=== PATIENT | male | born 1955 | race Caucasian/White ===

== ENCOUNTER 2016-04-24 08:54 | Observation (INO) | payer BC ==
--- NOTE | 2016-04-24 09:30 | RAD ---
HISTORY: Altered mental status COMPARISONS: None TECHNIQUE: Multiple contiguous axial CT scans were obtained of the head without intravenous contrast. FINDINGS: HEMORRHAGE/INFARCT: There is no hemorrhage or acute infarct. MASSES/SHIFT: There is no mass or shift. EXTRA-AXIAL SPACES: There are no extra-axial fluid collections. SULCI AND VENTRICLES: The sulci and ventricles are normal in size and position for the patient's stated age. CEREBRUM: There are no focal parenchymal abnormalities. BRAINSTEM: There are no focal parenchymal abnormalities. CEREBELLUM: There are no focal parenchymal abnormalities. VESSELS: The vessels are grossly normal. PARANASAL SINUSES: The paranasal sinuses are clear. ORBITS: The orbits are unremarkable. BONES AND SOFT TISSUE: No bone or soft tissue abnormalities are noted. OTHER: None IMPRESSION: NO ACUTE INTRACRANIAL PATHOLOGY.
[2016-04-24 09:43] LABS: Hematocrit 46 % (42-52); Hemoglobin 15.1 g/dl (14.0-18.0); Mean Corpuscular HGB Conc 33 g/dl (31-36); Mean Corpuscular Hemoglobin 30 pg (27-31); Mean Corpuscular Volume 90 fL (80-94); Mean Platelet Volume 8 um3 (7.4-10.4); Red Cell Distribution Width 13 % (10.5-15); White Blood Count 8.3 10^3/ul (3.5-10.8)
--- NOTE | 2016-04-24 09:45 | RAD ---
Indication: Chest pain. Single frontal view of the chest performed at 0925 hours was reviewed. Prior study is not available for review. No mediastinal shift is noted. Heart is of normal size and configuration. Lung shaw appear clear. IMPRESSION: NO ACTIVE CARDIOPULMONARY DISEASE IS NOTED.
[2016-04-24 10:00] LABS: Albumin 4.1 g/dL (3.2-5.2); EGFR African American 80.8 (>60); EGFR Non-African American 62.8 (>60); Globulin 2.9 g/dL (2-4); Potassium 3.7 mmol/L (3.5-5.0); Total Bilirubin 0.6 mg/dL (0.2-1.0)
[2016-04-24 10:03] LABS: Troponin I 0.02 ng/mL (<0.04)
[2016-04-24] MEDS ORDERED: NS 0.9% 1000 ML* 1,000 ML IV ONE ×2 (10:37→12:33)
[2016-04-24 10:56] LABS: TSH (Thyroid Stimulating Horm) 2.16 mcIU/mL (0.34-5.60)
--- NOTE | 2016-04-24 11:00 | RAD ---
Indication: Right leg pain and edema. Duplex Doppler sonography of the deep venous system of both lower extremities was performed. The left common femoral veins, proximal saphenous veins, proximal deep femoral veins, femoral veins, popliteal veins, posterior tibial veins and peroneal veins appear patent and compressible. The right common femoral vein is noncompressible with no evidence of flow. The right proximal greater saphenous vein is patent. The right proximal deep femoral vein, femoral vein and popliteal vein demonstrates echogenic material and is noncompressible with no flow. Posterior tibial veins and peroneal veins on the right are limited. IMPRESSION: Occlusive deep venous thrombosis extending from the right common femoral vein and right popliteal vein with limited evaluation of the right posterior tibial veins and peroneal veins.
--- NOTE | 2016-04-24 13:51 | CONSULT ---
Consult Consult: 60 yo RHM, HTN, HL, remote DVT, anti plt lauren, presenting with right hand incoordination he noted today, eg when using the soap dish, repeatedly dropping his (heavy) keys (on a new lucas ring). He tried to compensate with his left hand. He had no focal leg weakness but did feel unsteady, without falls or being pulled in any specific direction. He had no bulbar or visual issues; a family member at one point this am apparently did see some facial asymmetry on the right. He has no sensory symptoms. He has noted occasional word substitutions or errors of words he knows. He has had bilateral but mostly right calf swelling and discomfort for the past 2 weeks. He had a DVT in the right leg 5 years ago; there may have been a plane flight not long prior; he is unaware of any personal or FH of thrombosis; he recalls anticoagulant use for a matter of months until clot recanalization. He has been treated with several courses of inhaled and/or oral steroids for asthma flare ups recently. He has been on low dose primidone from his PMD for suspected essential tremor; he notes it when holding objects. 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 Cranial Nerves: II, III, IV, V, , VII, VIII, IX, X, XI and XII intact. Funduscopy reveals sharp discs. Motor: normal bulk and tone. Power testing is 5/5. There is no pronator drift or miguel a tremor. Sensory: vibration and touch are intact. Reflexes: 2 all extremities. Plantar responses are equivocal to flexor. Coordination: finger to nose is symmetric and intact, rapid alternating movements symmetric Gait: casual gait is normal. Romberg was negative. Serologies: - Coags, LFTs, TSH, BNP, cpk/trop are all normal or neg; bun/cr 25/1.2, plts 126K - Priors: crp neg 2012 Imaging: - Head CT reviewed and negative - Leg dopplers w/ right femoral/popliteal DVT (vs neg 2012) - Cxr neg; 10/11 CT abd and pelvis had left UVJ stone w/ hydro Impression: 60 yo RHM, several vascular risk factors, remote (and now recurrent) RLE DVT ( no history of hypercoag state but unclear if provoked), p/w right hand incoordination and word substitution errors, as well as ? facial asymmetry noted earlier by family. His exam is non localizing save rare paraphasic errors ; CT is non localizing. His symptom onset is not entirely clear, and he is not a thrombolytic candidate. He may be having a TIA or small left hemisphere stroke ; if found to have an acute donor recruitment manager vascular event, we will need to eval for a PFO given the recurrent DVT finding. Plan: 1. I defer to the medicine and ED services whether he requires a hypercoag eval. 2. start with a non contrasted brain mri if positive for stroke, he will then need a TTE with bubble study, and a CTA or MRA head and neck (hydrate) 3. would give ASA for now; clarify statin treatment; get FLP 4. treatment of DVT per primary team 5. will follow up on testing
[2016-04-24] MEDS ORDERED: Enoxaparin(*) 100 MG/ML SYR SUBCUT ONE (14:07)
[2016-04-24 14:51] LABS: Benzodiazepine Urine Screen None Detected (None Detect)
[2016-04-24] MEDS ORDERED: Aspirin TAB* 325 MG PO ONE (15:00)
[2016-04-24] MEDS ORDERED: Acetaminophen TAB* 325 MG PO PRN (15:05)
[2016-04-24] MEDS ORDERED: Ondansetron INJ* 2 MG/ML VIAL IV PRN (15:05)
[2016-04-24] MEDS ORDERED: Albuterol HFA INHALER* 8 gm MDI INH PRN (15:08)
--- NOTE | 2016-04-24 17:18 | HP ---
ADDENDUM NOW INCLUDED ON THIS REPORT ADMISSION HISTORY AND PHYSICAL: DATE OF ADMISSION: 04/24/16 PRIMARY CARE PROVIDER: Dr. Armani Wall. ADMITTING PROVIDER: SYED Rivero SUPERVISING PHYSICIAN: Dr. Cullen Taylor.* (DICTATED BY SYED THOMAS) CHIEF COMPLAINT: Discoordination with the right hand, jumbled speech, and facial droop. HISTORY OF PRESENT ILLNESS: This is a 60-year-old gentleman with a history of hypertension, hyperlipidemia, asthma, and mild chronic kidney disease, who presented to the emergency department with complaints of some difficulty with fine motor in his right hand. He was dropping objects frequently today as well as some garbled speech and a questionable right facial droop. Those symptoms have since resolved since being in the emergency department. He also provided a history of bilateral lower extremity pain and edema. The patient has been installing insulation his attic recently and has been climbing up and down the stairs quite frequently, so he blamed his pain and swelling in his legs on this and did not think much of it. He does have a history of prior DVT about 5 years ago. It sounds like it was likely spontaneous and he believes that he was anticoagulated for about 1 year. He has no known family history of clotting disorders. The patient states that he has seen by his asthma specialist over the last several weeks and treated for an asthma exacerbation and is currently completing a prednisone taper. He believes that he is about half way through a 10-day taper. The patient does believe that the steroids have been helping. His symptoms were increased shortness of breath and wheeze associated with this. PAST MEDICAL HISTORY: 1. Hypertension. 2. Hyperlipidemia. 3. History of DVT in the right leg approximately 5 years ago, anticoagulated for approximately 1 year, and sounds like this is likely spontaneous. 4. Asthma. 5. Essential tremor. 6. Historic seizure disorder but apparently has been without seizures in almost 20 years. PAST SURGICAL HISTORY: 1. The patient had likely a fusion procedure at L5-S1. 2. Ureteral stent placement and possible lithotripsy for a prior kidney stone. HOME MEDICATIONS: 1. Albuterol 2 puffs inhaled q.4 hours p.r.n. shortness of breath. 2. Ibuprofen 800 mg p.o. q.8 hours as needed for pain. 3. Lisinopril 20 mg p.o. daily. 4. Lovastatin 40 mg p.o. at bedtime. 5. Dulera 2 puffs inhaled twice daily. 6. Primidone 100 mg p.o. at bedtime. 7. Prednisone taper unknown dose at this time. FAMILY HISTORY: Negative for clotting disorder. SOCIAL HISTORY: The patient lives at home with his . Denies any smoking history. 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 He has 2 adult children. Consumes alcohol on a social basis. REVIEW OF SYSTEMS: As noted above in HPI. Otherwise, negative specifically concerning chest pain. PHYSICAL EXAMINATION GENERAL: This is a very pleasant middle-aged gentleman, in no acute distress, accompanied by his . VITAL SIGNS: Initially, temperature 99.2 degrees Fahrenheit, pulse 61 beats per minute, respiratory rate 17 per minute, oxygen saturation 97% on room air, blood pressure 152/86 mmHg. HEENT: Head is normocephalic, atraumatic with moist mucous membranes. NECK: Supple and free of lymphadenopathy. RESPIRATORY: Lungs are clear to auscultation without wheezes, crackles, or rhonchi. CARDIOVASCULAR: Heart has a regular rate and rhythm without murmurs, rubs, or gallops. ABDOMEN: Soft and nontender to palpation. EXTREMITIES: The patient does have bilateral edema, right greater than left, and some tenderness to palpation to the right calf. NEURO: Cranial nerves II through XII are intact. Gait is unremarkable. No neurologic deficits appreciated. Strength is 5/5 in all extremities. PSYCH: The patient is alert and appropriately oriented. SKIN: Limited exam shows no concerning rashes or lesions. DIAGNOSTIC STUDIES/LAB DATA: CBC shows white blood cell count of 8300, hemoglobin 15.1 g/dL, and platelet count of 126,000. INR of 0.94, PTT of 25. Comprehensive metabolic panel shows sodium of 135 mmol/L, potassium 3.7 mmol/L, BUN of 25, creatinine 1.19, estimated GFR of 62. Lactic acid normal at 1.9. Transaminases and total bilirubin within normal limits. BNP normal at 76. TSH 2.16. Imaging: Ultrasound of the lower extremities bilaterally shows an occlusive DVT extending from the right common femoral vein and right popliteal vein. No clot appreciated on the left. Chest x-ray shows no acute disease. CT of the brain shows no acute disease. ASSESSMENT AND PLAN: This is a 60-year-old gentleman with a history of prior deep venous thrombosis, hypertension, hyperlipidemia, asthma, and stage 2 chronic kidney disease, who presents with what sounds to be a transient ischemic attack and right lower extremity deep venous thrombosis. 1. Transient ischemic attack/cerebrovascular accident - the patient was evaluated by Neurology in the emergency department. MRI is pending at this time to evaluate for acute infarct as this will certainly change his management for his deep venous thrombosis. We will otherwise initiate aspirin therapy. He is already on a statin. We will check a fasting lipid panel in the morning. Admit with continuous telemetry. Obtain ultrasound of both carotid arteries as well as an echocardiogram. Based on current history and resolution of symptoms in the emergency department, this likely seems to be a transient ischemic attack. 2. Right-sided deep venous thrombosis - waiting on MRI of the brain to help determine appropriate anticoagulation for the deep venous thrombosis. Depending on the timing of this, could potentially empirically start a heparin drip, but would like to ensure that he does not have an acute ischemic area that might become hemorrhagic if anticoagulation is initiated. Otherwise, if MRI is negative, can start him on Xarelto and plan to discharge him on that. It sounds like this deep venous thrombosis is also spontaneous. He is unable to come up with any inciting factors that may have contributed to this clot formation. We would recommend a minimum of 6 months of anticoagulation and then Hematology consult for hypercoagulability workup. 3. Asthma exacerbation - I do not appreciate any wheeze or hypoxia on exam. Question whether his treatments for asthma exacerbation are actually due to a pulmonary embolism. Considered a CTA to evaluate for such, but this would not change his treatment plan as he requires anticoagulation regardless for his deep venous thrombosis and he is hemodynamically stable, so his treatments would not change in the presence of a pulmonary embolism. 4. Hypertension - continue home antihypertensives. 5. Hyperlipidemia - continue home statin therapy. 6. Stage 2 chronic kidney disease based on review of prior labs and today - avoid nephrotoxic agents; specifically, it appears that the patient has been taking NSAIDs at home, and repeat basic metabolic panel in the morning. 7. Code status - the patient is full code. 8. Healthcare proxy is his . 9. DVT prophylaxis - this will be determined based on his MRI results, but he will need to be anticoagulated for his deep venous thrombosis. DISPOSITION: The patient is being admitted to observation status for TIA and DVT. Anticipate that he will likely be appropriate for discharge tomorrow morning with pending workup at this time. SYED RIVERO ADDENDUM: MRI of the brain was completed, which is read as a tiny ischemic focus in the left parietal region near the vertex. No other significant findings appreciated. I discussed this with neurologist, Dr. Deluca who felt that it was appropriate to initiate anticoagulation for his DVT. I ordered a heparin drip to start this evening. If the patient remains neurologically stable overnight, then he can still likely be discharged tomorrow with Xarelto or similar medication. SYED RIVERO CC: Dr. Armani Wall* [id number]/CPS #: [id number] [place]-[id number]/CPS #: [id number] [place]
--- NOTE | 2016-04-24 17:56 | RAD ---
INDICATION: Left CVA COMPARISON: MRI brain same date TECHNIQUE: Transverse and longitudinal scans of the carotid and vertebral arteries were performed with epperson scale, color Doppler, and spectral Doppler imaging. Stenosis criteria is based on flow velocities that correlate with visual internal carotid artery diameter (NASCET criteria) FINDINGS: Right carotid: There is mild calcific plaque involving the bifurcation. There is no spectral broadening. The peak systolic velocity of the internal carotid artery is 81 cm/s and the peak diastolic velocity 21 cm/s. The ICA/CCA ratio is calculated at 1.2. This corresponds to a less than 50% diameter stenosis. The actual degree of stenosis is closer to 0. Left carotid: There is mild calcific plaque involving the bifurcation. There is no spectral broadening. The peak systolic velocity of the internal carotid artery is 71 cm/s and the peak diastolic velocity 27 cm/s. The ICA/CCA ratio is calculated at 1.0. This corresponds to a less than 50% diameter stenosis. The actual degree of stenosis is closer to 0. Right vertebral: Right vertebral waveforms are normal and the flow is antegrade. Left vertebral: Left vertebral waveforms are normal and the flow is antegrade. IMPRESSION: NO EVIDENCE OF A HEMODYNAMICALLY SIGNIFICANT STENOSIS. CPT II Codes: 3100F PQRS
--- NOTE | 2016-04-24 20:29 | RAD ---
INDICATION: Question CVA COMPARISON: CT brain April 24, 2016 TECHNIQUE: sagittal T1 FLAIR, axial diffusion, axial T1 FLAIR, axial T2, axial T2 FLAIR, and SWI images were acquired. FINDINGS: Craniocervical junction: The craniocervical junction appears normal. Ventricles/sulci: The ventricles and cisterns are normal in size and configuration for age. Brain parenchyma: There is a punctate ischemic focus in the cortex of the left parietal lobe at the level the body of the lateral ventricles measuring 7 mm. There are no other focal parenchymal abnormalities other than scant T2-weighted hyperintensities in the periventricular white matter consistent with mild chronic microvascular ischemic change. There is no evidence of intracranial mass or mass effect. Intracranial hemorrhage: No acute intracranial hemorrhage. Extra-axial spaces: There are no extra-axial fluid collections or masses. Orbits: There are no MR abnormalities of the orbital structures. Paranasal sinuses/mastoid: The paranasal sinuses are clear. The mastoid air cells are well aerated.. Vascular: No abnormalities are seen. Other: None IMPRESSION: TINY ISCHEMIC FOCUS LEFT PARIETAL REGION NEAR THE VERTEX. NO ADDITIONAL SIGNIFICANT FINDINGS.
[2016-04-24] MEDS: Mometasone/Formoter 200/5 MDI INH SCH (20:38)
[2016-04-24] MEDS ORDERED: Heparin DRIP 25,000 UNITS(*) 25,000 UNITS/500 ML BAG IVPB SCH (21:00)
[2016-04-24] MEDS ORDERED: Heparin VIAL(*) 5000 UNITS/ML VIAL (FIVE THOUSAND) IV SCH (21:00)
[2016-04-24] MEDS ORDERED: Atorvastatin* 10 MG TAB PO SCH (21:00)
[2016-04-24] MEDS ORDERED: Fluticasone-Salmeterol 500-50* DISKUS INH SCH (21:00)
--- NOTE | 2016-04-24 21:34 | HP ---
HISTORY AND PHYSICAL:* ADDENDUM: MRI of the brain was completed, which is read as a tiny ischemic focus in the left parietal region near the vertex. No other significant findings appreciated. I discussed this with neurologist, Dr. Deluca who felt that it was appropriate to initiate anticoagulation for his DVT. I ordered a heparin drip to start this evening. If the patient remains neurologically stable overnight, then he can still likely be discharged tomorrow with Xarelto or similar medication. SYED RIVERO [id number]/CPS #: [id number] [place]
[2016-04-24] MEDS: predniSONE TAB* 5 MG PO SCH (21:35)
[2016-04-25 05:35] LABS: BUN/Creatinine Ratio 20.4 (8-20); Calcium 8.3 mg/dL (8.6-10.3); EGFR African American 85.7 (>60); EGFR Non-African American 66.7 (>60); HDL Cholesterol 89.3 mg/dL
[2016-04-25] MEDS: predniSONE TAB* 5 MG PO SCH (07:42)
[2016-04-25] MEDS: Mometasone/Formoter 200/5 MDI INH SCH (08:54)
--- NOTE | 2016-04-25 08:59 | PN ---
Progress Note - Progress Note SOAP: 60 yo h/o L5 surgery, remote RLE DVT (with recurrence), p/w right hand incoordination, ? facial asymmetry and occasional paraphasic errors, all largely resolved. Med team admission also mentions a remote ? seizure disorder; this did not come up during my initial consult yesterday; he is not on any AEDs currently. He describes 2 episodes, around 25 years ago, of loss of consciousness that occurred while standing, with a lightheaded prodrome, and subsequent shaking, pallor and diaphoresis per bystanders. He does not know if he saw a neurologist at the time or workup, but thinks he was on an anti seizure med for some period (cannot name). Their admission note also correctly wonders whether his recent course of steroids/nebulizers for his known asthma disorder was in fact a presenting PE, but he has been stable cardioresp lubin, and will be anticoagulated anyway, ie unclear what CTA would add. He notes increased episodes of exertional dyspnea and some wheezing in the past 2 months, but that his asthma diagnosis is more longstanding. Neuro exam non localizing; no paraphasic errors Brain mri reviewed and has a single small left fronto-parietal acute infarct on dwi, with a small area of hemosiderin on GRE; hard to see on adc map; handful of other non acute small vessel ischemic changes CUS negative Plts 126, PTT 150, CK-MB 11; LDL 111; chem and TSH ok i/p: 60 yo h/o L5 surgery, ? remote seizure (likely syncope by history), prior RLE DVT, p/w tiny left parietal stroke in context of recurrent DVT, with negative large vessel workup. There is a small amount of hemosiderin in the stroke area, but there is no macro or visible bleed on CT, and this should not stop plans for anticoagulation. 1. Modest dose statin is fine for pleiotropic effects, recognizing that the stroke is likely due to paradoxical embolization mechanism lubin. 2. Hypercoag workup for DVT at primary team discretion, recognizing that this may be an academic point, as he will likely be anticoagulated for life (whether Coumadin vs NOAC at primary team discretion) for recurrent and likely unprovoked DVT 3. TTE with bubble study again may be somewhat academic, but a sizable shunt may warrant terminal press operator PFO closure for recurrent stroke prevention; can also eval for late bubbles/extra cardiac shunt mechanism 4. should be able to go home post echo, follow up with pmd, neuro, possibly cardiology depending on echo findings
[2016-04-25] MEDS ORDERED: predniSONE TAB* 5 MG PO SCH (09:00)
[2016-04-25] MEDS ORDERED: Aspirin EC Low Dose* 81 MG TAB.EC PO SCH (09:00)
[2016-04-25] MEDS ORDERED: Lisinopril TAB* 10 MG PO SCH (09:00)
[2016-04-25 16:57] VITALS: BP 140/74
--- NOTE | 2016-04-25 17:59 | PN ---
Subjective Date of Service: 04/25/16 Interval History: Patient seen and examined at bedside. Pt states that he is feeling well, feels like his UE weakness has resolved. He continues to have discomfort and "weakness " in his right LE that he attributes to his DVT. Denies fever, chills, shortness of breath, chest discomfort, N/V/D. Tele: Sinus aamir to sinus rhythm, rate 50-80's. Family History: Unchanged from Admission Social History: Unchanged from Admission Past Medical History: Unchanged from Admission Objective Active Medications: Acetaminophen (Tylenol Tab*) 650 mg PO Q4H PRN Reason: FEVER/PAIN Albuterol (Ventolin Hfa Inhaler*) 2 puff INH Q4HR PRN Reason: SHORTNESS OF BREATH Aspirin (Aspirin Ec Low Dose*) 81 mg PO DAILY [facility] Atorvastatin Calcium (Lipitor*) 10 mg PO BEDTIME [facility] Heparin Sodium (Porcine) (Heparin Vial(*)) 0 units IV .PER PROTOCOL [facility] Heparin Sodium/Dextrose (Heparin Drip 25,000 Units(*)) 25,000 units in 500 mls @ 0 mls/hr IVPB .PER RATE [facility]; Per Protocol Lisinopril (Prinivil Tab*) 20 mg PO DAILY [facility] Mometasone Furoate/Formoterol Fumar (Dulera 200/5 Mdi*) 2 puff INH BID [facility] Ondansetron HCl (Zofran Inj*) 4 mg IV Q4H PRN Reason: NAUSEA/VOMITING Prednisone (Deltasone Tab*) 15 mg PO BID [facility] Vital Signs 04/24/16 04/24/16 04/24/16 18:00 19:12 20:53 Temperature 97.6 F Pulse Rate 63 66 72 Respiratory 16 Rate Blood Pressure 143/75 160/91 150/98 (mmHg) O2 Sat by Pulse 92 99 97 Oximetry 04/25/16 04/25/16 04/25/16 00:15 03:52 07:23 Temperature 97.6 F 97.4 F 97.8 F Pulse Rate 62 64 68 Respiratory 20 20 16 Rate Blood Pressure 136/96 130/93 142/92 (mmHg) O2 Sat by Pulse 95 96 96 Oximetry 04/25/16 04/25/16 04/25/16 08:55 11:40 16:28 Temperature 98.7 F 98.2 F Pulse Rate 62 56 72 Respiratory 14 18 16 Rate Blood Pressure 150/80 140/74 (mmHg) O2 Sat by Pulse 98 95 97 Oximetry Oxygen Devices in Use Now: None Appearance: NAD, sitting up in bed. Eyes: No Scleral Icterus, PERRLA Ears/Nose/Mouth/Throat: NL Teeth, Lips, Gums, Mucous Membranes Moist Neck: NL Appearance and Movements; NL JVP, Trachea Midline Respiratory: Symmetrical Chest Expansion and Respiratory Effort, Clear to Auscultation Cardiovascular: NL Sounds; No Murmurs; No JVD, RRR Abdominal: NL Sounds; No Tenderness; No Distention Extremities: - Skin: No Rash or Ulcers Neurological: Alert and Oriented x 3, NL Muscle Strength and Tone Lines/Tubes/Other Access: Clean, Dry and Intact Peripheral IV - site benign Nutrition: Taking PO's Result Diagrams: 04/24/16 09:21 04/25/16 05:06 Assess/Plan/Problems-Billing Assessment: Mr. Negron is a 60 yo male with PMH significant for HTN, HLD, remote hx right LE DVT, asthma, and essential tremor who presented to the emergency room with complaints of fine motor weakness in the right UE, garbled speech and possible right facial droop. - Patient Problems (1) CVA (cerebral vascular accident) Code(s): I63.9 - CEREBRAL INFARCTION, UNSPECIFIED SNOMED Code(s): 865429395 Comment: - No neurological deficits - MRI brain - "tiny ischemic focus in the left patietal region near the vertex" - Continue statin - Follow-up with Neurology as outpatient (2) DVT (deep venous thrombosis) Code(s): I82.409 - ACUTE EMBOLISM AND THOMBOS UNSP DEEP VN UNSP LOWER EXTREMITY SNOMED Code(s): 595772559 Comment: - Second non-provoked DVT - Occlusive DVT extending from the right common femoral vein and right popliteal vein - Pt doesn't want to be on Coumadin - Start Xarelto 15 mg BID for 21 days, followed by 20 mg daily - Hypercoag work-up labs, pending (3) Asthma exacerbation Code(s): J45.901 - UNSPECIFIED ASTHMA WITH (ACUTE) EXACERBATION SNOMED Code(s) : 437567606 Comment: - Pt feels improvement since starting Prednisone (4) HTN (hypertension) Code(s): I10 - ESSENTIAL (PRIMARY) HYPERTENSION SNOMED Code(s): 37004966 Comment: - SBP 130-150's - Continue Lisinopril (5) HLD (hyperlipidemia) Code(s): E78.5 - HYPERLIPIDEMIA, UNSPECIFIED SNOMED Code(s): 00407357 Comment: - Continue statin (6) CKD (chronic kidney disease) stage 2, GFR 60-89 ml/min Code(s): N18.2 - CHRONIC KIDNEY DISEASE, STAGE 2 (MILD) SNOMED Code(s): 112301981 Comment: - Creatinine improved overnight - Avoid nephrotoxic medications (7) DVT prophylaxis Code(s): XEG9764 - SNOMED Code(s): 298083315 Comment: Heparin gtt to Xarelto (8) Full code status Code(s): Z78.9 - OTHER SPECIFIED HEALTH STATUS SNOMED Code(s): 205150716 Status and Disposition: OBV. Stable for discharge to home.
[2016-04-25] MEDS ORDERED: Rivaroxaban TAB(*) 15 MG PO SCH (21:00)
--- NOTE | 2016-04-26 01:56 | DS ---
DISCHARGE SUMMARY: DATE OF ADMISSION: 04/24/16 DATE OF DISCHARGE: 04/25/16 ATTENDING PHYSICIAN: Dr. Cullen Taylor*(dictated by Ofelia Gaitan NP). PRIMARY CARE PROVIDER: Dr. Armani Wall. PRIMARY DIAGNOSES: 1. Small left parietal cerebrovascular accident. 2. Right lower extremity deep vein thrombosis. 3. Hyperlipidemia. SECONDARY DIAGNOSES: 1. Hypertension. 2. Asthma. 3. Essential tremor. 4. History of seizure disorder. CONSULTATIONS WHILE IN THE HOSPITAL: Dr. Samm Deluca, Neurology. STUDIES WHILE IN THE HOSPITAL: 1. Chest x-ray on 04/24/16. Radiologist's impression: No active cardiopulmonary disease is noted. 2. Brain CT on 04/24/16. Radiologist's impression: No acute intracranial pathology. 3. Bilateral lower extremity venous Dopplers. Radiologist's impression: Occlusive deep vein thrombosis extending from the right common femoral vein and the right popliteal vein with limited evaluation of the right posterior tibial vein and peroneal veins. 4. Brain MRI on 04/24/16. Radiologist's impression: Tiny ischemic focus, left parietal region near the vertex. No additional significant findings. 5. Carotid Doppler study on 04/24/16. Radiologist's conclusion: No evidence of a hemodynamically significant stenosis. 6. Echocardiogram on 04/25/16. Compensator Worker's conclusion: Global left ventricular wall motion and contractility are within normal limits. The estimated ejection fraction is 55% to 60%. Abnormal left ventricular diastolic filling is observed, consistent with impaired relaxation. The right ventricular global systolic function is normal. There were late bubble seen in the left atrium with Valsalva, multiple bubbles seen post-Valsalva. All valves appeared structurally normal with good function. There is a trace of mitral regurgitation. No prior echo for comparison. DISCHARGE MEDICATIONS: New home medications: 1. Xarelto 15 mg oral twice daily for 21 days. 2. Xarelto 20 mg oral daily after completion of 21-day course of 15 mg of Xarelto. 3. Acetaminophen 650 mg oral every 4 hours as needed for fever or pain. Continued home medications: 1. Lisinopril 20 mg oral daily. 2. Albuterol sulfate 2 puffs inhalation every 4 hours as needed for shortness of breath or wheeze. 3. Primidone 100 mg oral daily at bedtime. 4. Lovastatin 40 mg oral daily at bedtime. 5. Dulera 200-5 MDI 2 puffs inhalation twice daily. 6. Prednisone taper. Discontinued home medications: 1. Ibuprofen. HISTORY OF PRESENT ILLNESS/HOSPITAL COURSE: Mr. Negron is a 60-year-old male with past medical history significant for hypertension, hyperlipidemia, asthma, and mild chronic kidney disease, who presents to the emergency room with complaints of difficulty with fine motor function of his right hand. The patient states he was frequently dropping objects and had noticed some garbled speech and possible right facial droop. The patient also reports a history of bilateral lower extremity pain and swelling. The patient does have a history of prior DVT approximately 5 years ago, that was believed to be spontaneous, and the patient was on anticoagulation for a year. The patient reports being seen recently by an asthma specialist over the last several weeks and treated for an asthma exacerbation and currently completing a prednisone taper. The patient feels that his breathing has improved with steroids. Based on the patient's symptoms, he decided to present to the emergency room for further evaluation of his symptoms. While in the emergency room, the patient's symptoms of right-handed weakness, facial droop, and slurred speech resolved. The patient had a brain CT showing no acute findings. The patient had a chest CT showing no acute findings. The patient had labs that were fairly unremarkable. The patient had an ultrasound of bilateral lower extremities showing an occlusive DVT extending from the right common femoral vein to the right popliteal vein with no clot seen on the left. The patient was seen by Neurology in the emergency room and ordered for an MRI in addition to an echo has been requested. Based on the patient's presentation, Hospitalist Medicine was asked to evaluate the patient for admission. During the patient's hospital stay, he was monitored on telemetry. There were no arrhythmias noted, although the patient was bradycardic at times with heart rate into the 50s. The patient underwent an MRI of his brain showing a tiny ischemic focus in the left parietal region near the vertex. The patient was started on a heparin drip. The patient had carotid imaging and was found to have no significant stenosis. The patient had a fasting lipid panel showing elevated LDL of 117 and a total cholesterol of 219. On admission, the patient had elevated creatinine of 1.19 and a BUN of 25. This did improve during his stay with a BUN of 23 and 1.13 on the day of discharge. The patient was able to ambulate and reports no return of neurological symptoms. The patient underwent a transthoracic echocardiogram showing abnormal left ventricular diastolic filling consistent with impaired relaxation with an estimated ejection fraction of 55% to 60%. The patient had a bubble study completed with his echo showing late bubble seen in the left atrium with Valsalva and multiple bubbles seen post-Valsalva. The patient's blood pressures remained fairly controlled. Mr. Negron is stable for discharge to home today. Vital signs are as follows: Temperature 98.2, heart rate 72, respiratory rate 16, O2 sat 97 % on room air, blood pressure 140/74. DISCHARGE PLAN: Mr. Negron will be discharged to home. Activity as tolerated. He should be on a heart-healthy diet. He has been encouraged to watch his cholesterol intake. As far as the patient's left parietal cerebrovascular accident; at this time, the patient has no neurological deficits and he would like to hold off on any physical therapy or occupational therapy, but if he has any difficulties, I would recommend he be seen by Physical Therapy and Occupational Therapy in the outpatient setting. It is felt that the patient's stroke was most likely due to a paradoxical embolization mechanism. It is recommended the patient be on a modest dose of statin. The patient will be continued on his home lovastatin. I do recommend though if the patient continues to have elevated LDL and cholesterol that his statin be adjusted, but at this time due to his CVA being caused by an embolization mechanism, we will leave his statin as is. As far as the patient' s right lower extremity DVT, it was discussed with the patient Coumadin versus NOAC and the patient would like to avoid Coumadin and would like to start a NOAC. The patient will be started on Xarelto 15 mg oral twice daily for 21 days followed by Xarelto 20 mg oral daily. The patient should be on anticoagulation for a minimum of 6 months, but more likely will need lifelong anticoagulation. The patient did have labs sent for hypercoagulation workup, but these are pending at his time of discharge. The patient should follow up with Neurology. He has been instructed to call [facility] Neurology to set up a followup appointment. The patient has a followup appointment with his primary care provider, Dr. Armani Wall. He has an appointment on 05/01/16 at 2:40 p.m. The patient has been provided with a work note to be out of work until he is seen by his primary care provider. The patient has been instructed to return to the emergency room for shortness of breath, chest pain, or signs of stroke such as slurred speech, weakness, or facial drooping. As far as the patient's chronic kidney disease, he has been instructed to avoid Motrin products. I recommend monitoring his renal function and considering discontinuing his lisinopril and changing it to another antihypertensive agent if his renal status worsens. As far as the patient having bubble seen on his transthoracic echocardiogram, this could represent a PFO or shunting. In the future a Cardiology workup for possible closure of the PFO could be considered, but at this time, that is not needed. This is a summarized report of a complex medical history and hospital stay. For further details, please see the entire medical record. TIME SPENT: Time for this discharge was 50 minutes, 25 minutes were spent face- to- face with the patient and discussing discharge plans and instructions. CONDITION ON DISCHARGE: Stable. Reviewed by CARIN SAHU 05/02/16 [id number] CC: Dr. Armani Wall; [facility] Neurology * [id number]/CPS #: [id number] [place]
[2016-04-26 12:44] LABS: Dil Russell Viper Ven Confirm 1.1 ratio (0.0 - 1.1); LAC DRVVT Mix Ratio 1.1 ratio (0.0 - 1.1)
[2016-04-26 13:24] LABS: LUP Hexthrombin Time (Bovine) >300 sec (15 - 23)
[2016-04-26 13:28] LABS: Reptilase-R Time 17 sec (14 - 23)
[2016-04-27 18:52] LABS: LAC APTT 176 sec (26 - 36); LAC INR 1.2; Lac DRVVT Screen Ratio 1.2 ratio (0.0 - 1.1); Prothrombin Time(LAC) 12.8 sec
[2016-04-30 10:00] LABS: Prothrombin 20210 Mutation Negative (Negative)
[2016-04-30 18:04] LABS: Factor V Leiden Mutation Negative (Negative)
[2016-05-04 14:55] LABS: Thrombin Time >300
== END 2016-04-25 19:15 | disposition home or self-care (01) ==
LOC: ED 08:54 → MEDTELE 15:05
PROVIDERS: ADMIT Internal Medicine; ATTEND Internal Medicine
DX: I63.9 Cerebral infarction, unspecified (principal); I82.401 Acute embolism and thrombosis of unspecified deep veins of right lower extremity; E78.5 Hyperlipidemia, unspecified; J45.909 Unspecified asthma, uncomplicated; R25.1 Tremor, unspecified; G40.909 Epilepsy, unspecified, not intractable, without status epilepticus; I12.9 Hypertensive chronic kidney disease with stage 1 through stage 4 chronic kidney disease, or unspecified chronic kidney disease; N18.2 Chronic kidney disease, stage 2 (mild); Z79.82 Long term (current) use of aspirin
CPT/HCPCS: 36415; 70450; 70551; 71010; 80048; 80053; 80061; 80307; 81240; 81241; 82550; 82553; 83605; 83874; 83880; 84443; 84484; 85025; 85390; 85610; 85613; 85635; 85670; 85730; 85732; 93005; 93306; 93880; 93970; 94640; 96374; 96376; 99283; A9270-GY; G0378; J1644; J1650; J7512

== ENCOUNTER 2017-09-08 19:14 | Emergency (ER) | payer BC ==
[2017-09-08 20:08] VITALS: BP 115/76
--- NOTE | 2017-09-08 20:36 | UC ---
Lower Extremity/Ankle HPI - HPI Summary HPI Summary: 61 y/o male presents to the urgent care c/o Rt ankle pain s/p falling out a ladder and landing on top of a rock and twisting his Rt ankle at about 1500Pm today. pt states ladder was about 5ft high. Pain is 7/10 w/ movement and walking associated w/ mild swelling on lateral side of ankle. Pt states he took 2 tabs P Tylenol to alleviate symptoms. Pt denies numbness or tingling sensation over the ankle or foot. Pt denies fever, SON, calf pain, abdominal pain, SOB, chest pain, N/v/D. - History of Current Complaint Chief Complaint: UCLowerExtremity Stated Complaint: RIGHT ANKLE INJURY Time Seen by Provider: 09/08/17 20:29 Hx Obtained From: Patient Onset/Duration: Sudden Onset, Lasting Hours - 5 hrs, Still Present Severity Initially: Moderate Severity Currently: Moderate Pain Intensity: 7 Pain Scale Used: 0-10 Numeric Aggravating Factor(s): Standing, Ambulation Alleviating Factor(s): Rest, OTC Meds Able to Bear Weight: Yes - Risk Factors Gout Risk Factors: Negative DVT Risk Factors: Negative Septic Arthritis Risk Factor: Negative - Allergies/Home Medications Allergies/Adverse Reactions: Allergies Allergy/AdvReac Type Severity Reaction Status Date / Time No Known Allergies Allergy Verified 09/08/17 20:08 PMH/Surg Hx/FS Hx/Imm Hx Previously Healthy: Yes Endocrine History: Dyslipidemia Cardiovascular History: Hypertension - Surgical History Surgical History: Yes Surgery Procedure, Year, and Place: L4-L5 SURGERY; - Family History Known Family History: Positive: Hypertension - Social History Occupation: Employed Full-time Lives: With Family Alcohol Use: Occasionally Substance Use Type: None Smoking Status (MU): Never Smoked Tobacco Review of Systems Constitutional: Negative Skin: Negative Eyes: Negative ENT: Negative Respiratory: Negative Cardiovascular: Negative Gastrointestinal: Negative Genitourinary: Negative Motor: Negative Neurovascular: Negative Musculoskeletal: Decreased ROM - RT ankle, Other: - RT ankle pain and swelling s /p fall Neurological: Negative Psychological: Negative Is Patient Immunocompromised?: No All Other Systems Reviewed And Are Negative: Yes Physical Exam - Summary Physical Exam Summary: Vital Signs Reviewed: Yes General: well developed, well nourished obese male, sitting in the examining table w/o any apparent distress Eyes: Positive: Conjunctiva Clear - PERRLA, EOMI, ENT: Positive: Normal ENT inspection, Hearing grossly normal, Pharynx normal, TMs normal Neck: Positive: Supple, Nontender, No Lymphadenopathy Respiratory: Positive: Chest non-tender, Lungs clear, Normal breath sounds, No respiratory distress Cardiovascular: Positive: RRR, No Murmur, Pulses Normal, Brisk Capillary Refill Abdomen Description: Positive: Nontender, No Organomegaly, Soft. Negative: CVA Tenderness (R), CVA Tenderness (L) Bowel Sounds: Positive: Present Musculoskeletal: - Ankle: Pt is able to bear weight and ambulate w/ limping. The R ankle is without obvious asymmetry or deformity when compared to the L ankle. Decreased ROM due to pain. Moderate swelling at the lateral malleolus, with tenderness to palpation. No ecchymosis or bruising observed. NO tenderness to palpation over the medial malleolus , no swelling observed. Talar tilt test is negative for ligament laxity to valgus or varus stress. Negative anterior drawer. Peroneal nerve is intact with strong eversion and plantar flexion. Positive sensation over the Rt foot and Rt ankle, positive pulses, capillary refill intact Neurological Exam: Normal Psychological Exam: Normal Skin: warm and dry l Triage Information Reviewed: Yes Vital Signs: Initial Vital Signs Temp 97.7 F 09/08/17 20:03 Pulse 83 09/08/17 20:03 Resp 16 09/08/17 20:03 BP 115/76 09/08/17 20:03 Pulse Ox 98 09/08/17 20:03 Lower Extremity Course/Dx - Course Course Of Treatment: 61 y/o male presents to the urgent care c/o Rt ankle pain s /p falling out a ladder and landing on top of a rock and twisting his Rt ankle at about 1500Pm today. pt states ladder was about 5ft high. Pain is 7/10 w/ movement and walking associated w/ mild swelling on lateral side of ankle. Pt states he took 2 tabs P Tylenol to alleviate symptoms. Pt denies numbness or tingling sensation over the ankle or foot. Pt denies fever, SON, calf pain, abdominal pain, SOB, chest pain, N/v/D.Hx obtained. Pt - Differential Dx/Diagnosis Differential Diagnosis/HQI/PQRI: Fracture (Closed), Sprain, Strain, Tendonitis Provider Diagnoses: 1- Rt ankle pain s/p fall Discharge - Discharge Plan Referrals: Armani Wall MD [Primary Care Provider] -
[2017-09-08] MEDS ORDERED: Acetaminophen TAB* 325 MG PO ONE (20:54)
--- NOTE | 2017-09-08 21:10 | RAD ---
INDICATION: Right ankle pain after falling off of a ladder COMPARISON: None. TECHNIQUE: 3 views of the right ankle were obtained. FINDINGS: There is cortical irregularity along the medial margin of the distal right fibular metaphysis. The visualized bones are otherwise intact and appropriately aligned. The ankle mortise is symmetric. Incidental note is made of mild calcified atherosclerosis overlying the distal TYRELL and GENERAL MERCHANDISE MANAGER. IMPRESSION: PARTIALLY VISUALIZED CORTICAL IRREGULARITY INVOLVING THE DISTAL RIGHT FIBULAR METAPHYSIS. RECOMMENDED DEDICATED AP AND LATERAL VIEW OF THE RIGHT LOWER LEG BONES.
--- NOTE | 2017-09-08 21:43 | RAD ---
Indication: Right ankle pain after falling off of a ladder Comparison: Same day radiograph of the ankle Technique: AP and lateral views right lower leg. Report: There is an irregular appearance of the fibular cortex but overall the cortex is intact. There is no definite displaced fracture. The tibia is intact. IMPRESSION: No acute fracture or dislocation. 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
== END 2017-09-08 22:19 | disposition home or self-care (01) ==
LOC: UCEAST 19:14
DX: M25.571 Pain in right ankle and joints of right foot (principal); E78.5 Hyperlipidemia, unspecified; I10 Essential (primary) hypertension; Z82.49 Family history of ischemic heart disease and other diseases of the circulatory system
CPT/HCPCS: 99213; A9270-GY; G0463

== ENCOUNTER 2017-10-30 08:37 | Emergency (ER) | payer BC, OTHER ==
[2017-10-30 08:50] VITALS: BP 136/88
--- NOTE | 2017-10-30 09:00 | UC ---
Knee Pain HPI - HPI Summary HPI Summary: The patient is a 61-year-old male with painless swelling of his right knee 3 weeks. He does have pain if he attempts to kneel. He denies any trauma. The knee does not [place] giveaway. The patient is on [place] toe for a CVA. The knee is not red, warm to touch, and he has not been running a fever. He is currently seen an orthopedic for an ankle injury. - History of Current Complaint Chief Complaint: UCLowerExtremity Stated Complaint: KNEE PAIN Time Seen by Provider: 10/30/17 08:49 Hx Obtained From: Patient Onset/Duration: Gradual Onset, Lasting Weeks - 3 Severity Currently: None Pain Intensity: 0 Pain Scale Used: 0-10 Numeric Aggravating Factor(s): Other - kneeling Associated Signs And Symptoms: Positive: Swelling Able to Bear Weight: Yes - Allergies/Home Medications Allergies/Adverse Reactions: Allergies Allergy/AdvReac Type Severity Reaction Status Date / Time No Known Allergies Allergy Verified 10/30/17 08:50 Home Medications: Home Medications Atorvastatin Calcium [Lipitor] 40 mg PO DAILY 10/30/17 [History Confirmed ] PMH/Surg Hx/FS Hx/Imm Hx Previously Healthy: Yes Endocrine History: Dyslipidemia Cardiovascular History: Hypertension Neurological History: CVA - Surgical History Surgical History: Yes Surgery Procedure, Year, and Place: L4-L5 SURGERY; - Family History Known Family History: Positive: Hypertension - Social History Alcohol Use: Daily Substance Use Type: None Smoking Status (MU): Never Smoked Tobacco Review of Systems Constitutional: Negative Skin: Negative Eyes: Negative ENT: Negative Respiratory: Negative Cardiovascular: Negative Gastrointestinal: Negative Genitourinary: Negative Motor: Negative Neurovascular: Negative Musculoskeletal: Other: - sweeling right knee Neurological: Negative Psychological: Negative Is Patient Immunocompromised?: No All Other Systems Reviewed And Are Negative: Yes Physical Exam Triage Information Reviewed: Yes Appearance: Well-Appearing, No Pain Distress, Well-Nourished Vital Signs: Initial Vital Signs Temp 97.4 F 10/30/17 08:46 Pulse 80 10/30/17 08:46 Resp 18 10/30/17 08:46 BP 136/88 10/30/17 08:46 Pulse Ox 97 10/30/17 08:46 Vital Signs Reviewed: Yes Eyes: Positive: Conjunctiva Clear ENT: Negative: Hearing grossly normal, Nasal congestion, Nasal drainage, Trismus , Muffled voice, Hoarse voice Neck: Positive: Supple, Nontender Respiratory: Positive: Lungs clear, Normal breath sounds, No respiratory distress, No accessory muscle use Cardiovascular: Positive: RRR, No Murmur Musculoskeletal: Positive: Strength Intact, ROM Intact, Other: - large prepatellar bursal effusion right knee/not red or warm/skin intact Neurological: Positive: Alert Psychological Exam: Normal Skin Exam: Normal Knee Pain Course/Dx - Differential Dx/Diagnosis Provider Diagnoses: right knee bursal effusion. ? due to bleeding vs bursitis Discharge - Sign-Out/Discharge Documenting (check all that apply): Patient Departure - Discharge Plan Condition: Stable Disposition: HOME Patient Education Materials: Knee Bursitis (ED) Referrals: Shira Montanez MD [Medical Doctor] - As Soon As Possible Additional Instructions: I suggest you see an orthopedist to have this addressed - Billing Disposition and Condition Condition: STABLE Disposition: Home
== END 2017-10-30 09:00 | disposition home or self-care (01) ==
LOC: UCEAST 08:37
DX: M25.461 Effusion, right knee (principal); E78.5 Hyperlipidemia, unspecified
CPT/HCPCS: 99211; G0463

== ENCOUNTER 2018-07-11 12:44 | Emergency (ER) | payer BC ==
[2018-07-11 13:33] LABS: Urine Appearance Cloudy; Urine Bacteria Absent (Absent); Urine Bilirubin Negative (Negative); Urine Blood 3+ (Negative); Urine Color Yellow; Urine Glucose Negative (Negative); Urine Ketones Negative (Negative); Urine Nitrite Negative (Negative); Urine Protein Negative (Negative); Urine Red Blood Cell 3+(>10/hpf) (Absent); Urine Specific Gravity 1.017 (1.010-1.030); Urine Urobilinogen Negative (Negative); Urine White Blood Cell Trace(0-5/hpf) (Absent)
[2018-07-11] MEDS ORDERED: Morphine 4 MG/ML VIAL (1 ml) 4 MG/ML VIAL IV PRN (15:55)
[2018-07-11] MEDS ORDERED: Ketorolac INJ* 15 MG/ML 1 ML VIAL IV PUSH ONE (15:55)
[2018-07-11] MEDS ORDERED: Ondansetron INJ* 2 MG/ML VIAL IV ONE (16:02)
[2018-07-11] MEDS ORDERED: Ondansetron INJ* 2 MG/ML VIAL ONE (16:03)
[2018-07-11 16:04] LABS: ABS Basophils 0 10^3/ul (0-0.2); ABS Eosinophils 0 10^3/ul (0-0.6); ABS Lymphocytes 0.7 10^3/ul (1.0-4.8); ABS Monocytes 0.5 10^3/ul (0-0.8); ABS Neutrophils 10.2 10^3/ul (1.5-7.7); ABS Nucleated RBC 0 10^3/ul; Eosinophil % 0 %; Hematocrit 43 % (36-46); Hemoglobin 14.5 g/dL (14.0-18.0); Lymphocyte % 6.3 %; Mean Corpuscular HGB Conc 34 g/dL (31-36); Mean Corpuscular Hemoglobin 31 pg (27-31); Mean Corpuscular Volume 89 fL (80-94); Mean Platelet Volume 7.2 fL (7.4-10.4); Nucleated Red Blood Cells % 0; Platelet Count 212 10^3/uL (150-450); Red Blood Count 4.77 10^6 /uL (4.18-5.48); Red Cell Distribution Width 14 % (10.5-15); White Blood Count 11.5 10^3/uL (3.5-10.8)
--- NOTE | 2018-07-11 16:05 | ED ---
Abdominal Pain/Male - HPI Summary HPI Summary: A 62 y/o male presents to [facility] with a chief complaint of abdominal pain since 11:30 today. He reports that his worst pain is in his flanks. He reports some hematuria. SOB, nausea and chills. He denies fever. At triage he rated his pain as a 10/10 in severity. He thinks he may have a kidney stone and has a history of kidney stones. His last BM was this morning. He reports that he stopped taking his blood thinner yesterday. - History of Current Complaint Chief Complaint: EDFlankPain Stated Complaint: POSS KIDNEY STONE PER Time Seen by Provider: 07/11/18 15:49 Hx Obtained From: Patient Onset/Duration: Sudden Onset, Lasting Hours, Still Present Timing: Constant, Lasting Hours Severity Initially: Severe Severity Currently: Severe Pain Intensity: 10 Pain Scale Used: 0-10 Numeric Location: Diffuse - worse in flanks Radiates: No Character: Other: - unable to describe Aggravating Factor(s): Nothing Alleviating Factor(s): Nothing Associated Signs And Symptoms: Positive: Urinary Symptoms - hematuria, Nausea. Negative: Fever - Allergies/Home Medications Allergies/Adverse Reactions: Allergies Allergy/AdvReac Type Severity Reaction Status Date / Time No Known Allergies Allergy Verified 07/11/18 12:47 PMH/Surg Hx/FS Hx/Imm Hx Endocrine/Hematology History: Denies: Hx Diabetes Cardiovascular History: Reports: Hx Hypercholesterolemia, Hx Hypertension Denies: Hx Pacemaker/ICD Respiratory History: Reports: Hx Asthma History: Reports: Hx Kidney Stones Denies: Hx Renal Disease Sensory History: Reports: Hx Contacts or Glasses Denies: Hx Hearing Aid, Other Sensory Impairments Opthamlomology History: Reports: Hx Contacts or Glasses Denies: Other Sensory Impairments Psychiatric History: Denies: Hx Panic Disorder - Surgical History Surgery Procedure, Year, and Place: L4-L5 SURGERY 6-7 YRS AGO; Infectious Disease History: No Infectious Disease History: Denies: Traveled Outside the [place] in Last 30 Days - Family History Known Family History: Positive: Hypertension - Social History Alcohol Use: Daily Substance Use Type: Reports: None Smoking Status (MU): Never Smoked Tobacco Review of Systems Positive: Chills. Negative: Fever Positive: Abdominal Pain, Nausea Positive: flank pain, hematuria All Other Systems Reviewed And Are Negative: Yes Physical Exam - Summary Physical Exam Summary: Constitutional: Well-developed, Well-nourished, Alert. (-) Distressed Skin: Warm, Dry HENT: Normocephalic; Atraumatic Eyes: Conjunctiva normal Neck: Musculoskeletal ROM normal neck. (-) JVD, (-) Stridor, (-) Tracheal deviation Cardio: Rhythm regular, rate normal, Heart sounds normal; Intact distal pulses; The pedal pulses are 2+ and symmetric. Radial pulses are 2+ and symmetric. (-) Murmur Pulmonary/Chest wall: Effort normal. (-) Respiratory distress, (-) Wheezes, (-) Rales Abd: Soft, Diffuse abdominal tenderness and guarding, rebound and right CVA tenderness, (-) Distension, Musculoskeletal: (-) Edema Lymph: (-) Cervical adenopathy Neuro: Alert, Oriented x3 Psych: Mood and affect Normal Triage Information Reviewed: Yes Vital Signs On Initial Exam: Initial Vitals Temp Pulse Resp BP Pulse Ox 96.2 F 77 24 149/93 99 07/11/18 12:47 07/11/18 12:47 07/11/18 12:47 07/11/18 12:47 07/11/18 12:47 Vital Signs Reviewed: Yes Diagnostics - Vital Signs Vital Signs Temp Pulse Resp BP Pulse Ox 07/11/18 14:40 96.5 F 76 24 149/82 99 07/11/18 12:47 96.2 F 77 24 149/93 99 - Laboratory Lab Results: Lab Results 07/11/18 Range/Units 13:07 Urine Color Yellow Urine Appearance Cloudy Urine pH 6.0 (5-9) Ur Specific [place] 1.017 (1.010-1.030) Urine Protein Negative (Negative) Urine Ketones Negative (Negative) Urine Blood 3+ A (Negative) Urine Nitrate Negative (Negative) Urine Bilirubin Negative (Negative) Urine Urobilinogen Negative (Negative) Ur Leukocyte Esterase Negative (Negative) Urine WBC (Auto) Trace(0-5/hpf) (Absent) Urine RBC (Auto) 3+(>10/hpf) A (Absent) Urine Bacteria Absent (Absent) Urine Glucose Negative (Negative) Result Diagrams: 07/11/18 15:42 07/11/18 15:42 Lab Statement: Any lab studies that have been ordered have been reviewed, and results considered in the medical decision making process. - CT abdomen/pelvis CT Interpretation Completed By: Radiologist Summary of CT Findings: 1. BILATERAL NEPHROLITHIASIS INCLUDING A SMALL CALCULUS OF THE DISTAL RIGHT URETER WITH. MILD HYDRONEPHROSIS. 2. FATTY INFILTRATION OF THE LIVER. ED physician has reviewed this imaging report. Re-Evaluation - Re-Evaluation First Eval Re-Evaluation Time: 18:11 Change: Improved Comment: Patient reports feeling better. Abdominal Pain Male Course/Dx - Course Course Of Treatment: A 62 y/o male presents to [facility] with a chief complaint of abdominal pain since 11:30 today. He thinks he may have a kidney stone and has a history of kidney stones. The physical exam revealed diffuse abdominal tenderness and guarding, rebound and right CVA tenderness In the ED course the patient was given Zorfran IV, Toradol IV, and Morphine IV. Blood work, chemistries and urines obtained, Urine blood 3+, Urine RBC 3+. Abdomen/pelvis CT impression: 1. BILATERAL NEPHROLITHIASIS INCLUDING A SMALL CALCULUS OF THE DISTAL RIGHT URETER WITH. MILD HYDRONEPHROSIS. 2. FATTY INFILTRATION OF THE LIVER. The patient will be discharged home with prescriptions for Cipro, Zithromax, Flomax and Percocet. He was instructed to follow up with his urologist. He is agreeable with this plan. - Diagnoses Provider Diagnoses: Kidney stone Discharge - Sign-Out/Discharge Documenting (check all that apply): Patient Departure - DC Patient Received Moderate/Deep Sedation with Procedure: No - Discharge Plan Condition: Improved Disposition: HOME Prescriptions: Ciprofloxacin TAB* [Cipro 500 MG TAB*] 500 mg PO BID #20 tab Ondansetron HCl [Zofran] 4 mg PO TID PRN #15 tablet PRN Reason: Nausea Oxycodone HCl/Acetaminophen [Percocet 5-325 mg Tablet] 2 each PO Q6HR PRN #16 tablet MDD 8 PRN Reason: Pain Tamsulosin CAP* [Flomax CAP*] 0.4 mg PO DAILY #14 cap Patient Education Materials: Kidney Stones (ED) Print Language: GREEK Referrals: Armani Wall MD [Primary Care Provider] - Federico Escobedo MD [Medical Doctor] - - Billing Disposition and Condition Condition: IMPROVED Disposition: Home - Attestation Statements Document Initiated by Scribe: Yes Documenting Scribe: Jeffery Winn Provider For Whom Scribe is Documenting (Include Credential): Erin Molina MD Scribe Attestation: I, Jeffery Winn, scribed for Erin Parmar MD on 07/11/18 at 2244. Scribe Documentation Reviewed: Yes Provider Attestation: The documentation as recorded by the savanaibJeffery carranza accurately reflects the service I personally performed and the decisions made by me, Erin Parmar MD Status of Scribe Document: Viewed
[2018-07-11 16:16] LABS: Albumin 4.6 g/dL (3.2-5.2); Albumin/Globulin Ratio 1.7 (1-3); BUN/Creatinine Ratio 22.3 (8-20); C Reactive Protein 1.19 mg/L (<8.01); Calcium 9.6 mg/dL (8.6-10.3); EGFR African American 68.1 (>60); EGFR Non-African American 56.3 (>60); Globulin 2.7 g/dL (2-4); Potassium 4.3 mmol/L (3.5-5.0); Total Bilirubin 0.7 mg/dL (0.2-1.0); Total Protein 7.3 g/dL (6.4-8.9)
[2018-07-11] MEDS ORDERED: HYDROmorphone INJ1* 1 MG/ML SYRINGE IV ONE (16:31)
[2018-07-11] MEDS ORDERED: Ciprofloxacin TAB* 500 MG PO ONE (18:44)
[2018-07-11] MEDS ORDERED: Tamsulosin CAP* 0.4 MG PO ONE (18:44)
[2018-07-11 19:06] VITALS: BP 163/79
== END 2018-07-11 19:05 | disposition home or self-care (01) ==
LOC: ED 12:44
DX: N13.2 Hydronephrosis with renal and ureteral calculous obstruction (principal); K76.0 Fatty (change of) liver, not elsewhere classified; I10 Essential (primary) hypertension; E78.00 Pure hypercholesterolemia, unspecified; J45.909 Unspecified asthma, uncomplicated
CPT/HCPCS: 36415; 74176; 80053; 81003; 81015; 83690; 85025; 86140; 87077; 87086; 87186; 96374; 96375; 99283; A9270-GY; J1170; J2270; J2405

== ENCOUNTER 2018-08-26 12:14 | Emergency (ER) | payer BC ==
[2018-08-26] MEDS ORDERED: NS 0.9% 1000 ML** 1,000 ML IV ONE (12:22)
[2018-08-26 13:23] LABS: ABS Lymphocytes 1.1 10^3/ul (1.0-4.8); ABS Monocytes 0.5 10^3/ul (0-0.8); ABS Neutrophils 4.5 10^3/ul (1.5-7.7); Eosinophil % 0.8 %; Hematocrit 39 % (42-52); Hemoglobin 13.1 g/dL (14.0-18.0); Lymphocyte % 18.1 %; Mean Corpuscular HGB Conc 34 g/dL (31-36); Mean Corpuscular Hemoglobin 30 pg (27-31); Mean Corpuscular Volume 89 fL (80-94); Platelet Count 169 10^3/uL (150-450); Red Blood Count 4.33 10^6 /uL (4.18-5.48); Red Cell Distribution Width 14 % (10.5-15); White Blood Count 6.3 10^3/uL (3.5-10.8)
[2018-08-26 13:57] LABS: BUN/Creatinine Ratio 15.7 (8-20); Calcium 9.2 mg/dL (8.6-10.3); EGFR African American 78.5 (>60); EGFR Non-African American 64.9 (>60); Potassium 3.7 mmol/L (3.5-5.0)
--- NOTE | 2018-08-26 15:06 | ED ---
Palpitations / Dysrhythmia - HPI Summary HPI Summary: A 62 y/o M presents to ED c/o racing palpitations onset approx 1100 and lasting one hour. Patient was at work at onset of symptoms, and they measured his BP as 182/110 and HR: 122 bpm. Associated sx: diaphoretic, dizziness, nausea, mild dyspnea. Denies CP. Per , patient fatigues easily. He takes Xarelto. PMHx: dysrhythmia, small hole in heart, multiple TIA, asthma, HLD. He has had an echo and stress test in the past. ED provider personally ambulating patient around ED 2x and had no symptoms. - History of Current Complaint Chief Complaint: EDHypertension Time Seen by Provider: 08/26/18 15:01 Hx Obtained From: Patient, Family/[employer] - Onset/Duration: Sudden Onset, Lasting Hours, Resolved Timing: Constant Severity Initially: Moderate Severity Currently: None Character: Fast Aggravating: Nothing Alleviating: Nothing Associated Signs & Symptoms: Dizzy, Shortness of Breath - mild dyspnea, Diaphoresis, Nausea - Allergy/Home Medications Allergies/Adverse Reactions: Allergies Allergy/AdvReac Type Severity Reaction Status Date / Time No Known Allergies Allergy Verified 08/26/18 12:27 PMH/Surg Hx/FS Hx/Imm Hx Previously Healthy: No Endocrine/Hematology History: Denies: Hx Diabetes Cardiovascular History: Reports: Hx Hypercholesterolemia, Hx Hypertension Denies: Hx Pacemaker/ICD Respiratory History: Reports: Hx Asthma History: Reports: Hx Kidney Stones Denies: Hx Renal Disease Sensory History: Reports: Hx Contacts or Glasses Denies: Hx Hearing Aid, Other Sensory Impairments Opthamlomology History: Reports: Hx Contacts or Glasses Denies: Other Sensory Impairments Neurological History: Reports: Hx Transient Ischemic Attacks (TIA) Psychiatric History: Denies: Hx Panic Disorder - Surgical History Surgery Procedure, Year, and Place: L4-L5 SURGERY 6-7 YRS AGO; Infectious Disease History: No Infectious Disease History: Denies: Traveled Outside the [place] in Last 30 Days - Family History Known Family History: Positive: Cardiac Disease - maternal, Hypertension - Social History Occupation: Employed Full-time Lives: With Family Alcohol Use: Daily Hx Substance Use: No Substance Use Type: Reports: None Hx Tobacco Use: No Smoking Status (MU): Never Smoked Tobacco Review of Systems Positive: Skin Diaphoresis Positive: Palpitations. Negative: Chest Pain Positive: Other - pos: mild dyspnea Positive: Nausea Neurological: Other - pos: dizziness All Other Systems Reviewed And Are Negative: Yes Physical Exam - Summary Physical Exam Summary: Appearance: well appearing, no pain distress Skin: warm, dry, reflects adequate perfusion Head/face: normal Eyes: EOMI, AVINASH ENT: mucous membranes moist Neck: supple, non-tender Respiratory: CTA, breath sounds present Cardiovascular: RRR, pulses symmetrical Abdomen: non-tender, soft Bowel Sounds: present Musculoskeletal: normal, strength/ROM intact Neuro: normal, sensory motor intact, A&Ox3 Triage Information Reviewed: Yes Vital Signs On Initial Exam: Initial Vitals Temp Pulse Resp BP Pulse Ox 97.5 F 107 20 148/100 97 08/26/18 12:18 08/26/18 12:18 08/26/18 12:18 08/26/18 12:18 08/26/18 12:18 Vital Signs Reviewed: Yes Diagnostics - Vital Signs Vital Signs Temp Pulse Resp BP Pulse Ox 08/26/18 14:20 97.6 F 89 18 136/91 97 08/26/18 12:18 97.5 F 107 20 148/100 97 - Laboratory Lab Results: Lab Results 08/26/18 08/26/18 Range/Units 13:03 13:03 WBC 6.3 (3.5-10.8) 10^3/uL RBC 4.33 (4.18-5.48) 10^6 /uL Hgb 13.1 L (14.0-18.0) g/dL Hct 39 L (42-52) % MCV 89 (80-94) fL MCH 30 (27-31) pg MCHC 34 (31-36) g/dL RDW 14 (10.5-15) % Plt Count 169 (150-450) 10^3/uL MPV 7.0 L (7.4-10.4) fL Neut % (Auto) 72.0 % Lymph % (Auto) 18.1 % [place] % (Auto) 8.4 % Eos % (Auto) 0.8 % Baso % (Auto) 0.7 % Absolute Neuts (auto) 4.5 (1.5-7.7) 10^3/ul Absolute Lymphs (auto) 1.1 (1.0-4.8) 10^3/ul Absolute Monos (auto) 0.5 (0-0.8) 10^3/ul Absolute Eos (auto) 0.0 (0-0.6) 10^3/ul Absolute Basos (auto) 0.0 (0-0.2) 10^3/ul Absolute Nucleated RBC 0.0 10^3/ul Nucleated RBC % 0.0 Sodium 136 (135-145) mmol/L Potassium 3.7 (3.5-5.0) mmol/L Chloride 105 (101-111) mmol/L Carbon Dioxide 24 (22-32) mmol/L Anion Gap 7 (2-11) mmol/L BUN 18 (6-24) mg/dL Creatinine 1.15 (0.67-1.17) mg/dL Est GFR ( Amer) 78.5 (>60) Est GFR (Non-Af Amer) 64.9 (>60) BUN/Creatinine Ratio 15.7 (8-20) Glucose 114 H (70-100) mg/dL Calcium 9.2 (8.6-10.3) mg/dL Result Diagrams: 08/26/18 13:03 08/26/18 13:03 Lab Statement: Any lab studies that have been ordered have been reviewed, and results considered in the medical decision making process. - EKG 1235 Cardiac Rate: Tachycardia - 103 bpm EKG Rhythm: Sinus Tachycardia ST Segment: Normal Summary of EKG Findings: Normal axis, normal interval. Course/Dx - Course Course Of Treatment: Nurses' notes reviewed. Patient with a short episode of palpitations prior to arrival. Symptoms all normal here in the patient is no longer tachycardic. He is fully asymptomatic. Laboratories are benign. He was exercised in the ER and had noted resulting symptoms. He will follow-up with his primary care physician for outpatient testing to include possible stress testing, event/Holter monitoring. - Diagnoses Differential Diagnosis/HQI/PQRI: Positive: Other - VT, SVT, A. fib, sinus tach, ectopy, hyperthyroidism Provider Diagnoses: Palpitations, Lightheadedness Discharge - Sign-Out/Discharge Documenting (check all that apply): Patient Departure - D/C Patient Received Moderate/Deep Sedation with Procedure: No - Discharge Plan Condition: Improved Disposition: HOME Prescriptions: Metoprolol Tartrate TAB* [Lopressor TAB*] 12.5 mg PO BID #30 tab Patient Education Materials: Heart Palpitations (ED) Referrals: Armani Wall MD [Primary Care Provider] - Additional Instructions: Call your doctor today to schedule prompt follow-up. If your blood pressure is going the lower than 110 and take one half tablet of your lisinopril instead of the full dose. Return with palpitations, chest pain, dizziness, worse or other concerns. He will likely need outpatient testing to include possibly stress test, Holter monitor/event monitor. - Billing Disposition and Condition Condition: IMPROVED Disposition: Home - Attestation Statements Document Initiated by Teresa: Yes Documenting Scribe: Zoya Mullen Provider For Whom Teresa is Documenting (Include Credential): Dr. Bruno Mariee MD Scribe Attestation: Zoya Beavers scribed for Dr. Bruno Mariee MD on 08/26/18 at 1725. Scribe Documentation Reviewed: Yes Provider Attestation: The documentation as recorded by the Zoya clayton accurately reflects the service I personally performed and the decisions made by me, Dr. Bruno Mariee MD Status of Scribe Document: Viewed
[2018-08-26 15:33] VITALS: BP 146/99
== END 2018-08-26 15:32 | disposition home or self-care (01) ==
LOC: ED 12:14
DX: R00.2 Palpitations (principal); R42 Dizziness and giddiness; I10 Essential (primary) hypertension; E78.00 Pure hypercholesterolemia, unspecified; J45.909 Unspecified asthma, uncomplicated; Z86.73 Personal history of transient ischemic attack (TIA), and cerebral infarction without residual deficits; Z87.442 Personal history of urinary calculi; R00.0 Tachycardia, unspecified; E78.5 Hyperlipidemia, unspecified; Q24.9 Congenital malformation of heart, unspecified
CPT/HCPCS: 36415; 80048; 85025; 93005; 99282